=== PATIENT | male | born 1940 | race Caucasian/White ===

== ENCOUNTER 2020-06-04 09:44 | Emergency (ER) | payer OTHER, MEDICARE, BC ==
[~2020-06-04] VITALS: Ht 170.2 cm; Wt 95.0 kg
[~2020-06-04 09:44] MED LIST: ASPI-1265 PO; CA C1TAB69 PO; CYAN500T71 PO; LEVO500T89 PO; LISI-222 PO; NOR5T PO; OMEP20TA5 PO
[2020-06-04] MEDS ORDERED: normal saline 1000ML IV soln IVB ONE (10:15)
--- NOTE | 2020-06-04 10:30 | NUR ---
Crash cart outside room.
[2020-06-04 10:37] LABS: CLARITY,URINE CLEAR (Clear); COLOR,URINE YELLOW (Yellow); GLUCOSE, URINE NEGATIVE (Neg); KETONES,URINE NEGATIVE (Neg); LEUKOCYTE ESTERASE ,URINE NEGATIVE (Neg); NITRITES, URINE NEGATIVE (Neg); OCCULT BLOOD,URINE NEGATIVE (Neg); PROTEIN,URINE NEGATIVE (Neg); UROBILINOGEN,URINE 0.2 E.U/dL (0.2-1.0)
[2020-06-04 10:43] VITALS: BP 159/85
[2020-06-04 10:50] LABS: UA COLLECTION TYPE URINAL
[2020-06-04 10:58] LABS: ALANINE AMINOTRANSFERASE 25 U/L (12-78); ALBUMIN 3.8 G/DL (3.4-5.0); ALBUMIN/GLOBULIN RATIO 1.2 (1.1-1.5); ALKALINE PHOSPHATASE 49 IU/L (46-116); ANION GAP 9 (8-16); ASPARTATE AMINO TRANSFERASE 18 U/L (10-37); BASOPHILS % (AUTO) 1.3 % (0-1); BILIRUBIN,TOTAL 1.1 MG/DL (0.1-1.0); BLOOD UREA NITROGEN 25 MG/DL (7-18); CALCIUM 9.2 MG/DL (8.5-10.1); CHLORIDE 103 MMOL/L (99-107); CREATININE 0.96 MG/DL (0.60-1.10); EOSINOPHILS # (AUTO) 0.2 X10'3 (0-0.9); EOSINOPHILS % (AUTO) 4.2 % (0-6); GLUCOSE 106 MG/DL (70-104); HEMATOCRIT 40.6 % (42.0-52.0); HEMOGLOBIN 14.1 g/dl (14.0-17.9); LYMPHOCYTES % (AUTO) 27.7 % (21-51); MEAN CORPUSCULAR HGB CONC 34.7 g/dL (33.0-36.5); MEAN CORPUSCULAR VOLUME 95.2 FL (78-98); MEAN PLATELET VOLUME 8.2 FL (7.4-10.4); MONOCYTES # (AUTO) 0.4 X10'3 (0-0.9); MONOCYTES % (AUTO) 10.3 % (2-12); NEUTROPHILS # (AUTO) 2.1 X10'3 (1.8-7.7); NEUTROPHILS % (AUTO) 56.5 % (42-75); PLATELET COUNT 196 X10'3 (140-440); POTASSIUM 4.2 MMOL/L (3.5-5.1); RED BLOOD COUNT 4.26 X10'6 (4.70-6.10); RED CELL DISTRIBUTION WIDTH 12.6 % (11.5-14.5); SODIUM 140 MMOL/L (135-145); TOTAL CARBON DIOXIDE 27.9 MMOL/L (24-32); TOTAL PROTEIN 7.1 G/DL (6.4-8.2); WHITE BLOOD COUNT 3.8 X10'3 (4.5-11.0); eGFR 75 ML/MIN
== END 2020-06-04 12:29 | disposition home or self-care (01) ==
LOC: ER 09:45
DX: I10 Essential (primary) hypertension (principal); R00.1 Bradycardia, unspecified; R42 Dizziness and giddiness; Z98.890 Other specified postprocedural states; Z91.040 Latex allergy status; Z79.82 Long term (current) use of aspirin; Z79.2 Long term (current) use of antibiotics; Z79.899 Other long term (current) drug therapy
CPT/HCPCS: 36415; 71045; 80053; 81003; 83880; 84484; 85025; 93005; 96360; 99285; J7030

== ENCOUNTER 2024-03-16 14:41 | Emergency (ER) | payer OTHER, MEDICARE, BC ==
[~2024-03-16] VITALS: Ht 170.2 cm; Wt 99.0 kg
[~2024-03-16 14:41] MED LIST changes: +LEVO-65 PO; -LEVO500T89 PO; +OMEP20TA43 PO; -OMEP20TA5 PO
[2024-03-16 14:50] VITALS: BP 150/100; PULSE 72; TEMP 98.6; O2SAT 96
[2024-03-16 16:15] VITALS: RESP 16
[2024-03-16] MEDS: HYDROcodone/acetaminophen 5mg/325mg tablet PO ONE (16:15)
[2024-03-16] MEDS: methylPREDNISolone acetate 80mg/ml inj**IM only IM ONE (16:25)
[2024-03-16] MEDS ORDERED: HYDR-3965 PO (17:09)
[2024-03-16] MEDS ORDERED: PRED20TA PO (17:09)
== END 2024-03-16 17:23 | disposition home or self-care (01) ==
LOC: ER 14:42
DX: M67.432 Ganglion, left wrist (principal); I10 Essential (primary) hypertension; Z91.040 Latex allergy status; Z79.1 Long term (current) use of non-steroidal anti-inflammatories (NSAID); Z79.899 Other long term (current) drug therapy; Z98.890 Other specified postprocedural states
CPT/HCPCS: 29125; 96372; 99283; J1010

== ENCOUNTER 2024-08-19 10:57 | Emergency (ER) | payer OTHER, MEDICARE, BC ==
[~2024-08-19] VITALS: Ht 170.2 cm; Wt 100.2 kg
[2024-08-19 11:13] VITALS: BP 96/58; PULSE 51; RESP 16; O2SAT 97
--- NOTE | 2024-08-19 11:40 | Physician Documentation ---
History of Present Illness ~ Chief Complaint: Wrist pain Stated Complaint: FALL X2 DAYS AGO/L WRIST SWELLING Time Seen by MD: 11:29 Primary Medical Doctor: [facility] 84-year-old male presents to the ED after falling two days ago with left wrist pain. complaints of increased pain swelling and erythema surrounding tissue. Tetanus within 5 years: Yes Medication Reconciliation Allergies: Coded Allergies: latex (Verified Allergy, Unknown, 10/15/13) Scheduled Amlodipine* (Norvasc*), 5 MG PO DAILY, (Reported) Aspirin (Aspirin), 1 TAB.CHEW PO DAILY, (Reported) Ca Cmb No.1/Vit D3/B-6/Fa/B12 (Vitamin D3 1,000 Unit Tablet), 1 EACH PO DAILY, (Reported) Cyanocobalamin* (Vitamin B-12*), 1 TAB PO DAILY, (Reported) Levofloxacin (Levofloxacin), 500 MG PO DAILY Lisinopril* (Lisinopril*), 40 MG PO HS, (Reported) Omeprazole (Omeprazole), 10 MG PO BID, (Reported) Prednisone* (Prednisone*), 1 TAB PO Q12H Past Medical History Past Medical History: Hypertension Past Surgical History: abdominal surgery, orthopedic surgeries Other Past Family History: Twin brother with history of atrial fibrillation Lives with: Spouse Lives In: Home Review of Systems All Other Systems at this time: Reviewed and Negative ROS As stated above in the HPI, otherwise all systems are reviewed and negative. Physical Exam Vital Signs: Temperature: 98.3, Source: Oral, Heart Rate: 51, Respiratory Rate: 16, BP: 96/58, Pulse Oximetry: 97, Weight: 100.200 Oxygen Flow Rate: 0 Physical Exam General: Alert, no apparent distress. Extremities: Normal range of motion, circumferential swelling on the left wrist noobvious deformity Neurologic: Oriented x4. Psychiatric: Normal mood and affect. Skin: Normal color, warm and dry. No edema, no ecchymosis. Progress Results/Orders Results/Orders Orders - DEZ CRUZ NP Ortho Orders (08/19/24 ) Completed Orders - DEZ CRUZ NP Prednisone Tablet (Prednisone Tablet) (08/19/24 11:55) Medications Received in ER Medications (Trade) Dose Ordered Sig/Kamran Route PRN Reason Start Time Stop Time Status Last Admin Dose Admin (predniSONE tablet) 20 mg ONCE ONCE PO 08/19/24 11:55 08/19/24 11:56 DC 08/19/24 12:24 20 MG Vital Signs 08/19/24 08/19/24 11:13 12:26 Temp 98.3 98.3 Pulse 51 Resp 16 B/P (MAP) 96/58 Pulse Ox 97 O2 Flow Rate 0 Medical Decision Making Findings 84-year-old male presents with her I initially thought was going to be a wrist fracture however per my interpretation there was no acute fracture. 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 Want to treat him with corticosteroids and advise him to follow up inthe outpatient is sitting Departure Disposition: HOME / SELF CARE / HOMELESS Impression: Primary Impression: Wrist joint pain Referrals: NO PRIMARY CARE PROVIDER (PCP) Prescriptions Prednisone* (Prednisone*) 20 Mg Tablet 1 TAB PO Q12H for 5 Days, #10 TAB Prov: DEZ CRUZ NP 08/19/24 Signature Scribe Signature: i Attestation: The note accurately reflects work and decisions made by me.Dez Munguia NP 08/19/24 14:44 DEZ CRUZ NP August 19, 2024 11:40
--- NOTE | 2024-08-19 11:43 | RADIOLOGY REPORT ---
DI WRIST, COMPLETE (3VW MIN), INDICATION: WRIST PAIN TECHNICAL DATA: Frontal oblie and lateral views were obtained of the left wrist. COMPARISON: None FINDINGS: No fracture is identified. Joint spaces are maintained. Alignment is anatomic. Ulnar variance is neut ra.. Soft tissues are within normal limits. IMPRESSION: Chondrocalcinosis is seen. No acute fracture or dislocation of the left wrist.
[2024-08-19] MEDS ORDERED: PRED20TA PO (11:55)
[2024-08-19] MEDS: predniSONE 20 mg tablet PO ONE (12:24)
[2024-08-19 12:26] VITALS: TEMP 98.3
== END 2024-08-19 12:31 | disposition home or self-care (01) ==
LOC: ER 10:57
DX: M25.532 Pain in left wrist (principal); I10 Essential (primary) hypertension; Z88.6 Allergy status to analgesic agent; Z88.8 Allergy status to other drugs, medicaments and biological substances; W19.XXXA Unspecified fall, initial encounter; Y93.89 Activity, other specified; Y92.89 Other specified places as the place of occurrence of the external cause; Y99.8 Other external cause status
CPT/HCPCS: 73110; 99283; J7512